=== PATIENT | female | born 1940 | race Caucasian/White ===

== ENCOUNTER → 2016-03-17 | Outpatient (CLI) | payer MEDICARE ==
[~2016-03-17] MED LIST: ASPIRIN E.C. 8181 MG PO; BIAXIN 500MG T500 MG PO; CHOLESTEROL FIG1 CAP PO; CLARITIN 1010 MG/TAB PO; FOLIC ACID0.8 MG PO; GAS DISTRESS1 TAB PO; GAS RELIEF125 MG PO; GENTAMICIN I40 MG/ML NAS; GLUMETZA500 MG PO; LEVOXYL0.088 MG PO; LIPITOR 10MG10 MG PO; MASON NATURAL1200 MG PO; METAMUCIL3.4 GM/DOS PO; NAC600 MG PO; NITRO-DUR0.2 MG/PAT TD; NITROSTAT0.4 MG/TAB SL; SLO-NIACIN750 MG PO; TOPROL XL 50MG50 MG PO; VITAMIN D 1001000 IU PO; folate PO
== END ==
LOC: COL.PUL 09:48
DX: J84.10 Pulmonary fibrosis, unspecified (principal)

== ENCOUNTER → 2016-09-25 | Outpatient (CLI) | payer MEDICARE ==
[2016-10-03 14:05] LABS: ALTERNARIA TENUIS IgE <0.05 IU/mL (<0.05); ALTERNARIA TENUIS IgE CLASS Negative (()); BERMUDA GRASS IGE CLASS Negative (()); BOX ELDER-MAPLE IgE <0.05 IU/mL (<0.05); BOX ELDER/MAPLE IgE CLASS Negative (()); CAT EPITHELIUM IGE CLASS Negative (()); CLASS INTERPRETATION GUIDE IU/mL (()); COCKROACH CLASS Negative (()); COTTONWOOD IGE CLASS Negative (()); DOG DANDER IGE CLASS Negative (()); DUST MITES IGE (D.F.) <0.05 IU/mL (<0.05); DUST MITES IGE (D.P.) <0.05 IU/mL (<0.05); DUST MITES IGE D.F. CLASS Negative (()); DUST MITES IGE D.P. CLASS Negative (()); FIREBUSH CLASS Negative (()); OAK IGE <0.05 IU/mL (<0.05); RED TOP IGE CLASS Negative (()); RED TOP IgE <0.05 IU/mL (<0.05); ROUGH MARSH ELDER IGE CLASS Negative (()); RUSSIAN THISTLE CLASS Negative (()); SHORT RAGWEED IGE CLASS Negative (())
== END ==
LOC: COL.LAB 10:21
PROVIDERS: Internal Medicine Pulmonary Disease
DX: J32.9 Chronic sinusitis, unspecified (principal)

== ENCOUNTER 2016-10-22 07:50 | Day surgery (SDC) | payer MEDICARE ==
[~2016-10-22] VITALS: Ht 172.7 cm; Wt 88.6 kg
[2016-10-22] VITALS (11 sets, daily range): BP systolic 120–153; BP diastolic 63–90; PULSE 55–71; TEMP 97.7–98.2
[~2016-10-22 07:50] MED LIST changes: -BIAXIN 500MG T500 MG PO; -FOLIC ACID0.8 MG PO; -GAS RELIEF125 MG PO; -GENTAMICIN I40 MG/ML NAS; -NAC600 MG PO; -NITRO-DUR0.2 MG/PAT TD; -NITROSTAT0.4 MG/TAB SL; -TOPROL XL 50MG50 MG PO
[2016-10-22] MEDS ORDERED: TOPROL XL 50MG50 MG PO (08:12)
[2016-10-22] MEDS ORDERED: FOLIC ACID0.8 MG PO (08:33)
[2016-10-22 08:35] LABS: HEMATOCRIT 40.2 % (37.0-47.0); HEMOGLOBIN 13.9 g/dl (12.5-16.0); MEAN CELL VOLUME 90 fl (80.0-100.0); MEAN CORPUSCULAR HEMOGLOBIN 31 pg (27.0-31.0); MEAN CORPUSCULAR HGB CONC 35 g/dl (33.0-37.0); PLATELET COUNT 205 K/mm3 (130-400); RED BLOOD COUNT 4.46 M/mm3 (4.10-5.30); REDCELL DISTRIBUTION WIDTH-CV 12.1 % (11.5-14.5)
[2016-10-22] MEDS ORDERED: NITROSTAT0.4 MG/TAB SL (08:37)
[2016-10-22] MEDS ORDERED: GAS RELIEF125 MG PO (08:37)
[2016-10-22] MEDS ORDERED: NAC600 MG PO (08:40)
[2016-10-22] MEDS ORDERED: BIAXIN 500MG T500 MG PO (08:41)
[2016-10-22] MEDS ORDERED: GENTAMICIN I40 MG/ML NAS (08:42)
[2016-10-22 09:08] LABS: INR 1.1 (0.8-3.0); PROTHROMBIN TIME 11.7 SECONDS (9.7-12.8)
[2016-10-22 09:20] LABS: CALCIUM 9.6 mg/dL (8.4-10.2); CREATININE, serum 0.95 mg/dL (0.52-1.25); POTASSIUM 3.6 mmol/L (3.4-5.0)
[2016-10-22] MEDS ORDERED: NITRO-DUR0.2 MG/PAT TD (11:48)
== END 2016-10-22 14:03 | disposition home or self-care (01) ==
LOC: EUO 07:50 → COL.CAR 08:00 → EUO 14:03
PROVIDERS: Internal Medicine Cardiovascular Disease
DX: I25.10 Atherosclerotic heart disease of native coronary artery without angina pectoris (principal); E11.9 Type 2 diabetes mellitus without complications; I10 Essential (primary) hypertension; J32.9 Chronic sinusitis, unspecified; J84.10 Pulmonary fibrosis, unspecified; Z79.84 Long term (current) use of oral hypoglycemic drugs
CPT/HCPCS: C1760; C1894; J2250; J3010; Q9967

== ENCOUNTER 2018-03-02 16:47 | Observation (INO) | payer MEDICARE ==
[~2018-03-02] VITALS: Ht 172.7 cm; Wt 81.8 kg
[~2018-03-02 16:47] MED LIST changes: +BIAXIN 500MG T500 MG PO; +FOLIC ACID0.8 MG PO; +GAS RELIEF125 MG PO; +GENTAMICIN I40 MG/ML NAS; +NAC600 MG PO; +NITRO-DUR0.2 MG/PAT TD; +NITROSTAT0.4 MG/TAB SL; +TOPROL XL 50MG50 MG PO
[2018-03-02 17:25] LABS: BASO % 0.3 % (0.0-2.0); EOS # 0.3 (0.0-0.7); EOS % 4.4 % (0-4.0); GRAN # 3.6 (1.4-6.5); GRAN % 50.6 % (42.2-75.2); HEMATOCRIT 38.8 % (37.0-47.0); LYMPH # 2.2 (1.2-3.4); LYMPH % 31.5 % (20.0-51.0); MEAN CELL VOLUME 93 fl (80.0-100.0); MEAN CORPUSCULAR HEMOGLOBIN 31 pg (27.0-31.0); MEAN CORPUSCULAR HGB CONC 34 g/dl (33.0-37.0); MEAN PLATELET VOLUME 9.8 fl (7.4-10.4); MONO # 0.9 (0.1-0.6); MONO % 13.1 % (1.7-9.3); PLATELET COUNT 226 K/mm3 (130-400); RED BLOOD COUNT 4.17 M/mm3 (4.10-5.30); REDCELL DISTRIBUTION WIDTH-CV 12.7 % (11.5-14.5)
[2018-03-02 17:43] LABS: BILIRUBIN,TOTAL 0.3 mg/dL (0.0-1.0); CALCIUM 9.5 mg/dL (8.4-10.2); CREATININE, serum 1.01 mg/dL (0.52-1.25); POTASSIUM 3.9 mmol/L (3.4-5.0); TOTAL PROTEIN 7.2 gm/dL (6.4-8.2)
[2018-03-02] MEDS ORDERED: OCUVITE1 TA1 PO (20:54)
--- NOTE | 2018-03-02 21:06 | NUR ---
Arrived from ED via bed. Transferred x3 assisted. Reports increased pain in right thigh with movement. Assessment complete. Left lower lobe crackles, otherwise clear. Abrasion to right eye brow with bruising. Alert and orientated x4. Orientated to medical floor and room. Denies needs at this time. Daughter and son at bedside. Call light in reach.
[2018-03-02 23:40] VITALS: BP 135/60; PULSE 63; TEMP 98.2
--- NOTE | 2018-03-02 23:45 | NUR ---
Assisted patient onto bed curry. Denies other needs. Call light in reach.
--- NOTE | 2018-03-03 00:58 | NUR ---
Assisted patient with repositioning in bed. Denies other needs. Call light in reach.
--- NOTE | 2018-03-03 02:00 | NUR ---
0130: Daughters called stating "numbers are dropping." Upon arrival in room patient on dynamap. Oxygen saturation 84% on 5 liters. Increased to 10 liters, increased HOB. No improvement in sx. Contacted respiratory for breathing treatment and increased to 12 liters, saturation now 91%. 0145: Respiratory in room for treatment. Placed back on bipap as ordered post treatment. Saturations remain at 94%. Daughters resting at bedside. All questions answered. Call light in reach.
--- NOTE | 2018-03-03 03:30 | NUR ---
Assisted to bedpan. Severe pain with movement. Refused pain medication. Resting in bed on left side. Call light in reach.
[2018-03-03 04:37] VITALS: BP 121/48; PULSE 61; TEMP 98.4
[2018-03-03 06:18] LABS: BASO % 0.2 % (0.0-2.0); EOS # 0.2 (0.0-0.7); EOS % 2.1 % (0-4.0); GRAN # 4.9 (1.4-6.5); GRAN % 60.2 % (42.2-75.2); HEMATOCRIT 37.9 % (37.0-47.0); HEMOGLOBIN 12.6 g/dl (12.5-16.0); LYMPH # 2.1 (1.2-3.4); LYMPH % 25.4 % (20.0-51.0); MEAN CELL VOLUME 93 fl (80.0-100.0); MEAN CORPUSCULAR HEMOGLOBIN 31 pg (27.0-31.0); MEAN CORPUSCULAR HGB CONC 33 g/dl (33.0-37.0); MEAN PLATELET VOLUME 9.8 fl (7.4-10.4); MONO % 11.9 % (1.7-9.3); PLATELET COUNT 189 K/mm3 (130-400); RED BLOOD COUNT 4.09 M/mm3 (4.10-5.30); REDCELL DISTRIBUTION WIDTH-CV 12.5 % (11.5-14.5)
--- NOTE | 2018-03-03 06:21 | NUR ---
Resting in bed this AM. Pain with movement in right leg throughout night. Refuses pain medication. Denies needs. Call light in reach.
[2018-03-03 06:26] LABS: CALCIUM 8.7 mg/dL (8.4-10.2); CREATININE, serum 0.88 mg/dL (0.52-1.25)
[2018-03-03 08:01] VITALS: BP 127/63; PULSE 60; TEMP 98.7
--- NOTE | 2018-03-03 10:29 | NUR ---
First visit from the it systems analyst consultant. No needs right now.
--- NOTE | 2018-03-03 11:00 | NUR ---
Pt is A+Ox3, pleasant, denies pain except wtih certain manipulations of rt leg, then sharp hot stabbing pain shoots from rt hip down rt leg. Otherwise pt is able to stand, take steps and sit to BSC without predictable pain. Rt hip is free of bruising, redness and warmpth. Pedal pulses 2+ bilaterally. Physical assessmetn completed. pt assisted on bedpan and later to BSC without incident, voided clear yellow urine. IV to RFA s redness/swelling at site, no further needs, call light in reach
[2018-03-03 11:42] VITALS: BP 140/54; PULSE 59; TEMP 98.3
--- NOTE | 2018-03-03 13:47 | NUR ---
SAPNA and SW student attended clinical rounding and met with patient to discuss discharge planning. Patient lives at [facility] in the independent living side. She reports she has a walker from her but does not usually use any assistive devices. Patients PCP is Dr Jones and she obtains her medications from [facility]. SAPNA talked with Siobhan at [facility] who reports she could get HH in independent living if that is appropriate. Patient reports [facility] is already coming in and helping her so she is open to them working with her as well. SAPNA made referral to [facility] and will continue to follow.
--- NOTE | 2018-03-03 14:41 | NUR ---
Patient needs a FWW. SW met with patient and obtained a choice form for [facility] pharmacy and faxed order/clinical information and called to inform them of possible dc today. [facility] called to confirm that they can provide services at DC.
[2018-03-03] MEDS ORDERED: Lidocaine 4% Patch TP (15:28)
--- NOTE | 2018-03-03 15:50 | NUR ---
Pt had uneventful day, vitals remained stable, pt has improved mobility greatly since this am, and sat up in chair for two hours during lunch. Pain spasms improved,. No further needs
--- NOTE | 2018-03-03 16:25 | NUR ---
This RN reviewed discharge instrutions with pt, answered all questions/ IV removed with tip intact, site free of complications. pt awaiting walker to arrive otherwise ready to leave
[2018-03-03 17:01] VITALS: BP 118/65; PULSE 110; TEMP 98.8
--- NOTE | 2018-03-03 17:35 | NUR ---
Pt left facility, escorted via w/c. Her walker arrived, all personal belongings collected
== END 2018-03-03 17:36 ==
LOC: COL.ER 16:47 → MEDICAL 19:56
PROVIDERS: Emergency Medicine; Nurse Practitioner; ADMIT Hospitalist
DX: M54.16 Radiculopathy, lumbar region (principal); M48.061 Spinal stenosis, lumbar region without neurogenic claudication; I10 Essential (primary) hypertension; E11.9 Type 2 diabetes mellitus without complications; Z79.84 Long term (current) use of oral hypoglycemic drugs; J84.10 Pulmonary fibrosis, unspecified; E03.9 Hypothyroidism, unspecified; I25.10 Atherosclerotic heart disease of native coronary artery without angina pectoris; Z95.5 Presence of coronary angioplasty implant and graft; J32.9 Chronic sinusitis, unspecified; Z79.82 Long term (current) use of aspirin; Z79.899 Other long term (current) drug therapy; W01.0XXA Fall on same level from slipping, tripping and stumbling without subsequent striking against object, initial encounter; Y92.009 Unspecified place in unspecified non-institutional (private) residence as the place of occurrence of the external cause
CPT/HCPCS: G0378; J2405; J3010; J7030

== ENCOUNTER → 2018-10-04 | Outpatient (CLI) | payer MEDICARE ==
[~2018-10-04] MED LIST changes: +Lidocaine 4% Patch TP; +OCUVITE1 TA1 PO
== END ==
LOC: COL.LAB 10:05
DX: G25.81 Restless legs syndrome (principal)

== ENCOUNTER 2018-12-16 07:06 | Day surgery (SDC) | payer MEDICARE ==
[~2018-12-16] VITALS: Ht 172.7 cm; Wt 90.2 kg
[2018-12-16 07:16] VITALS: BP 146/91; PULSE 81; TEMP 97.6
[2018-12-16] MEDS ORDERED: NAC600 MG PO (07:36)
[2018-12-16] MEDS ORDERED: BIAXIN 500MG T500 MG PO (07:37)
[2018-12-16] MEDS ORDERED: GENTAMICIN NAS (07:40)
[2018-12-16] MEDS ORDERED: SODIUM CHLORIDE NAS (07:40)
[2018-12-16 08:40] VITALS: BP 129/75; PULSE 66
--- NOTE | 2018-12-16 08:40 | NUR ---
Pt arrived from End[facility] procedure room via cart with Endo RN. Pt ambulated easily to chair. She is drowsy but oriented and appropriate. Family at bedside, call light within reach. VSS and WNL
[2018-12-16 08:55] VITALS: BP 124/64; PULSE 64
--- NOTE | 2018-12-16 08:55 | NUR ---
Pt requested muffin and juice and denies nausea or pain. Pt progressively becoming less drowsy, and she states, "I'm feeling more like myself." Pt states she would feel comfortable going home.
[2018-12-16 09:10] VITALS: BP 132/73; PULSE 67
--- NOTE | 2018-12-16 09:10 | NUR ---
at bedside reviewing procedure with pt and family. Pt has no further questions. This RN reviewed discharge information/education packet with pt. She expresses understanding of the information. VSS and WNL, and pt meets criteria for discharge.
== END 2018-12-16 09:25 | disposition home or self-care (01) ==
LOC: SDCO 07:06
DX: Z12.11 Encounter for screening for malignant neoplasm of colon (principal); K57.30 Diverticulosis of large intestine without perforation or abscess without bleeding; Z86.010 Personal history of colon polyps; E11.9 Type 2 diabetes mellitus without complications; I10 Essential (primary) hypertension; E78.00 Pure hypercholesterolemia, unspecified; G25.81 Restless legs syndrome; J84.10 Pulmonary fibrosis, unspecified; Z88.8 Allergy status to other drugs, medicaments and biological substances; Z91.018 Allergy to other foods; Z79.82 Long term (current) use of aspirin; I25.10 Atherosclerotic heart disease of native coronary artery without angina pectoris
CPT/HCPCS: J2704; J7030

== ENCOUNTER 2021-02-19 13:55 | Emergency (ER) | payer MEDICARE ==
[~2021-02-19] VITALS: Ht 170.2 cm; Wt 89.1 kg
[~2021-02-19 13:55] MED LIST changes: +GENTAMICIN NAS; +SODIUM CHLORIDE NAS
[2021-02-19 15:16] VITALS: BP 152/94; TEMP 98.2
[2021-02-19 17:15] VITALS: PULSE 60
== END 2021-02-19 17:17 | disposition home or self-care (01) ==
LOC: COL.ER 13:55
DX: S83.92XA Sprain of unspecified site of left knee, initial encounter (principal); S40.012A Contusion of left shoulder, initial encounter; I10 Essential (primary) hypertension; E11.9 Type 2 diabetes mellitus without complications; E03.9 Hypothyroidism, unspecified; I25.10 Atherosclerotic heart disease of native coronary artery without angina pectoris; Z79.890 Hormone replacement therapy; Z79.899 Other long term (current) drug therapy; Z79.84 Long term (current) use of oral hypoglycemic drugs; Z79.82 Long term (current) use of aspirin; W01.198A Fall on same level from slipping, tripping and stumbling with subsequent striking against other object, initial encounter

== ENCOUNTER 2023-10-09 09:10 | Emergency (ER) | payer MEDICARE ==
[~2023-10-09] VITALS: Ht 170.2 cm; Wt 79.1 kg
[2023-10-09 09:16] VITALS: TEMP 97.2
[2023-10-09] MEDS ORDERED: NS 1,000 ML IV ONE (09:30)
[2023-10-09 09:38] LABS: BASO % 0.2 % (0.0-2.0); EOS # 0.1 K/mm3 (0.0-0.7); EOS % 1.2 % (0.0-4.0); GRAN # 8.5 K/mm3 (1.4-6.5); GRAN % 77.1 % (42.2-75.2); HEMATOCRIT 39.7 % (37.0-47.0); HEMOGLOBIN 13.2 g/dl (12.5-16.0); LYMPH # 1.2 K/mm3 (1.2-3.4); LYMPH % 10.9 % (20.0-51.0); MEAN CELL VOLUME 92 fl (80.0-100.0); MEAN CORPUSCULAR HEMOGLOBIN 30 pg (27-31); MEAN CORPUSCULAR HGB CONC 33 g/dl (33.0-37.0); MEAN PLATELET VOLUME 9.4 fl (7.4-10.4); MONO # 1.1 K/mm3 (0.1-0.6); MONO % 10.1 % (1.7-9.3); PLATELET COUNT 266 K/mm3 (130-400); RED BLOOD COUNT 4.34 M/mm3 (4.10-5.30); REDCELL DISTRIBUTION WIDTH-CV 12.9 % (11.5-14.5)
[2023-10-09 10:09] LABS: ALBUMIN 3.4 g/dL (3.4-4.8); BILIRUBIN,TOTAL 0.7 mg/dL (0.2-1.2); CALCIUM 9.8 mg/dL (8.4-10.2); CREATININE, serum 0.86 mg/dL (0.57-1.11); TOTAL PROTEIN 7.4 g/dl (6.2-8.1)
[2023-10-09] MEDS ORDERED: Iohexol 300 - 100 ML VIAL IV ONE (10:44)
[2023-10-09] MEDS ORDERED: NS 100 ML IV ONE (10:46)
[2023-10-09 11:09] LABS: PH 6.5 (5.0-8.5); URINE APPEARANCE CLEAR (CLEAR/HAZY); URINE BLOOD NEGATIVE (NEGATIVE); URINE COLOR YELLOW (YELLOW); URINE GLUCOSE NEGATIVE (NEGATIVE); URINE KETONE NEGATIVE (NEGATIVE); URINE NITRATE NEGATIVE (NEGATIVE); URINE PROTEIN(semi-quant) NEGATIVE (NEGATIVE); URINE UROBILINOGEN 0.2 E.U/dL (0.2-1.0)
[2023-10-09 11:22] LABS: COLLECTION METHOD CLEAN CATCH
[2023-10-09] MEDS ORDERED: FLAGYL500 MG PO (11:23)
[2023-10-09] MEDS ORDERED: CIPRO 500MG TA500 MG PO (11:23)
[2023-10-09] MEDS ORDERED: metroNIDAZOLE 250 MG TAB PO ONE (11:30)
[2023-10-09] MEDS ORDERED: Ciprofloxacin 500 MG TAB PO ONE (11:30)
[2023-10-09 11:37] VITALS: BP 123/60; PULSE 62
== END 2023-10-09 11:44 | disposition home or self-care (01) ==
LOC: COL.ER 09:10
PROVIDERS: Personal Emergency Response Attendant
DX: K57.32 Diverticulitis of large intestine without perforation or abscess without bleeding (principal)
CPT/HCPCS: J7030; Q9967